=== PATIENT | male | born 1935 | race Caucasian/White ===

== ENCOUNTER 2017-05-29 12:28 | Emergency (ER) | payer OTHER, MEDICARE ==
[~2017-05-29] VITALS: Ht 172.7 cm; Wt 74.8 kg
[~2017-05-29 12:28] MED LIST: AUGMENTIN 500M500 MG PO; CHILDREN'S ASPI81 M1 PO; KRILL OIL500 MG PO; LOPRESSOR50 MG PO; METOPROLOL TART50 MG PO; PREDNISONE 20MG20 MG PO; TAMSULOSIN HYD0.4 MG PO; Theragran Vitamins PO; [UNRECOGNIZED DRUG - OTHER] PO
[2017-05-29] MEDS ORDERED: HYDRALAZINE HCL50 M1 PO (14:31)
[2017-05-29] MEDS ORDERED: METOPROLOL TART50 M1 PO (14:33)
--- NOTE | 2017-05-29 14:34 | ED GI/GU/ABDOMINAL COMPLAINT ---
History of Present Illness General Chief Complaint: Male Genitourinary Problems Stated Complaint: BLD IN URINE Source: patient, family, old records Exam Limitations: no limitations Vital Signs & Intake/Output Vital Signs & Intake/Output Vital Signs Date Time Temp Pulse Resp B/P B/P Pulse O2 O2 Flow FiO2 Mean Ox Delivery Rate 05/29 1628 78 18 148/82 99 Room Air 05/29 1259 97.6 72 18 167/70 97 Room Air Allergies Coded Allergies: Sulfa (Sulfonamide Antibiotics) (RASH 05/29/17) Reconcile Medications Aspirin (Children's Aspirin) 81 MG TAB.CHEW 1 TAB PO DAILY HEART HEALTH ( Reported) Atorvastatin Calcium 40 MG TABLET 1 TAB PO DAILY CHOLESTEROL (Reported) Hydralazine HCl 50 MG TABLET 1 TAB PO BID HEART (Reported) Krill Oil 500 MG CAPSULE 1 CAP PO DAILY SUPPLEMENT (Reported) Metoprolol Tartrate 50 MG TABLET 1 TAB PO DAILY HEART (Reported) Tamsulosin HCl (Flomax) 0.4 MG CAP.ER.24H 1 CAP PO DAILY bph Triage Note: PT TO ER W/ C/C URINARY RETENTION, HEMATURIA AND BURNING PAIN W/ URINATION X 4 DAYS, ALSO C/O CONSTIPATION X 4 DAYS. HX OF ENLARGED PROSTATE. Triage Nurses Notes Reviewed? yes Onset: 3-4 days Duration: day(s):, continues in ED Timing: recent history Quality/Severity: aching, moderate Location: suprapubic Radiation: no radiation Activities at Onset: rest Prior Abdominal Problems: similar symptoms Past Sexual History: Unobtainable at this time Modifying Factors: Worsens With: palpation, urinating. Associated Symptoms: abdominal pain, dysuria, urinary frequency HPI: 3-4 days prior to admission patient complains of decreasing urine stream with passage of bloody urine with associated dysuria. He also complains of increasing suprapubic fullness with constipation. He denies fever chills nausea vomiting diarrhea chest pain cough shortness breath headache rash bleeding. Past History Travel History Traveled to [place] past 21 day No Medical History Any Pertinent Medical History? see below for history Cardiovascular: hypertension, hyperlipidemia Renal: nephrolithiasis Other Medical Hx: BPH History of MRSA: No History of VRE: No History of CDIFF: No Pneumonia Vaccine: 03/02/07 Influenza Vaccine: 12/28/13 Surgical History Surgical History: non-contributory Psychosocial History Who do you live with Family Services at Home None What is your primary language Arabic Tobacco Use: Quit >30 days ago Family History Family History, If Any: No Known Family History. Hx Contributory? No Review of Systems Review of Systems Constitutional: Reports: no symptoms. EENTM: Reports: no symptoms. Respiratory: Reports: no symptoms. Cardiovascular: Reports: no symptoms. GI: Reports: see HPI, constipation. Genitourinary: Reports: see HPI, dysuria, hematuria, pain. Musculoskeletal: Reports: no symptoms. Skin: Reports: no symptoms. Neurological/Psychological: Reports: no symptoms. Hematologic/Endocrine: Reports: no symptoms. Immunologic/Allergic: Reports: no symptoms. All Other Systems: Reviewed and Negative Physical Exam Physical Exam General Appearance: well developed/nourished, alert, awake, anxious, moderate distress, obese Head: atraumatic, normal appearance Eyes: Bilateral: normal appearance, PERRL, EOMI, normal inspection. Ears, Nose, Throat, Mouth: hearing grossly normal, moist mucous membrane Neck: normal inspection, supple, full range of motion, normal alignment Respiratory: normal breath sounds, chest non-tender, no respiratory distress, quiet respiration, lungs clear Cardiovascular: regular rate/rhythm, normal peripheral pulses, norml femoral pulses equa Peripheral Pulses: 4+ carotid (R), 4+ carotid (L) Gastrointestinal: normal bowel sounds, soft, no organomegaly, distention, tenderness (suprapubic) Male Genitals: normal genitalia Back: normal inspection, normal range of motion, no vertebral tenderness Extremities: normal range of motion, no ligament instability Neurologic/Psych: no motor/sensory deficits, awake, alert, oriented x 3, normal gait, normal mood/affect, tobacco sample puller II-XII nml as tested Skin: intact, normal color, warm/dry Core Measures ACS in differential dx? No Sepsis Present: No Sepsis Focused Exam Completed? No Progress Differential Diagnosis: ureterolithiasis, urinary retention, UTI/pyelo Plan of Care: Orders Procedure Date/time Status Pang, Insertion/Removal/Asses 05/29 142 Active Continuous Bladder Irrigation 05/29 1421 Active CULTURE,URINE 05/29 1421 Active COMPREHENSIVE METABOLIC PANEL 05/29 1421 Complete CBC WITHOUT DIFFERENTIAL 05/29 1421 Complete CULTURE,URINE 05/29 1249 Active URINALYSIS 05/29 1249 Complete Current Medications Sig/Giulia Start time Last Medication Dose Stop Time Status Admin Ciprofloxacin 500 MG ONCE ONE 05/29 171 CAN (Cipro) 05/29 1716 Laboratory Tests 05/29/17 1626: Anion Gap 15, Estimated GFR 17 L, BUN/Creatinine Ratio 17.7, Glucose 134 H, Calcium 8.8, Total Bilirubin 0.9, AST 24, ALT 19 L, Alkaline Phosphatase 62, Total Protein 6.6, Albumin 3.4 L, Globulin 3.2, Albumin/Globulin Ratio 1.1, CBC w Diff NO MAN DIFF REQ, RBC 3.50 L, MCV 91.3, MCH 30.3, MCHC 33.2, RDW 14.4, MPV 9.3, Gran % 87.0 H, Lymphocytes % 6.7 L, Monocytes % 5.9, Eosinophils % 0.1, Basophils % 0.3, Absolute Granulocytes 11.4 H, Absolute Lymphocytes 0.9 L , Absolute Monocytes 0.8 H, Absolute Eosinophils 0, Absolute Basophils 0 05/29/17 1407: Urinalysis LIGHT H, Urine Color BLDY H, Urine Clarity CLDY H, Urine pH 8.0, Ur Specific [place] 1.015, Urine Protein >=300 H, Urine Ketones NEG, Urine Nitrite POS H, Urine Bilirubin NEG@ICTO, Urine Urobilinogen 1.0, Ur Leukocyte Esterase LARGE H, Ur Microscopic SEDIMENT EXAMINED, Urine RBC PACKD H, Urine WBC 50-75 H, Ur Epithelial Cells RARE, Urine Bacteria MOD H, Urine Hemoglobin LARGE H, Urine Glucose NEG Microbiology 05/29 1421 URINE ROUT: Urine Culture - ORD 05/29 1407 URINE ROUT: Urine Culture - RECD Diagnostic Imaging: Viewed by Me: CT Scan. Discussed w/RAD: CT Scan. Radiology Impression: Right grade 4 in left grade 5 bilateral hydroureteronephrosis without obstructing ureteral calculi. Nonobstructive left upper pole renal calculus. Stable cardiomegaly. Hiatal hernia. Diverticulosis without evidence of diverticulitis. Small amount of free fluid within the right paracolic gutter. Initial ED EKG: none Departure Departure Time of Disposition: 1707 Disposition: HOME OR SELF CARE Condition: Stable Clinical Impression Primary Impression: Urinary retention Secondary Impressions: Hydronephrosis, Urinary tract infection Referrals: Herminia SALMON,Nigel Galindo (PCP/Family) Departure Forms: Customer Survey General Discharge Information Prescriptions: Current Visit Scripts Tamsulosin HCl (Flomax) 1 CAP PO DAILY #30 CAP
[2017-05-29] MEDS ORDERED: ATORVASTATIN CA40 M1 PO (14:35)
[2017-05-29 16:36] LABS: ABSOLUTE BASOPHIL COUNT 0 /CUMM (0.0-0.2); ABSOLUTE EOSINOPHIL COUNT 0 /CUMM (0.0-0.7); ABSOLUTE GRANULOCYTE CT 11.4 /CUMM (1.4-6.5); ABSOLUTE LYMPH COUNT 0.9 /CUMM (1.2-3.4); ABSOLUTE MONOCYTE COUNT 0.8 /CUMM (0.10-0.60); BASOPHIL % 0.3 % (0.0-2.0); EOSINOPHIL % 0.1 % (0-5); HEMATOCRIT 31.9 % (42-52); MEAN CORPUSCULAR HGB 30.3 PG (27.0-31.0); MEAN CORPUSCULAR HGB CONC 33.2 G/DL (33.0-37.0); MEAN CORPUSCULAR VOLUME 91.3 FL (80.0-94.0); MEAN PLATELET VOLUME 9.3 FL (7.4-10.4); PLATELET COUNT 214 /CUMM (130-400); RBC DISTRIBUTION WIDTH 14.4 % (11.5-14.5); WHITE BLOOD CELL COUNT 13.1 /CUMM (4.8-10.8)
[2017-05-29] MEDS ORDERED: CIPRO500 M1 PO (17:06)
[2017-05-29] MEDS ORDERED: FLOMAX0.4 M1 PO (17:06)
--- NOTE | 2017-05-29 17:51 | CT SCAN REPORT ---
EXAMINATION: CT ABDOMEN AND PELVIS WITHOUT CONTRAST CLINICAL INFORMATION: Urinary retention. Azotemia. COMPARISON: 03/23/2014. TECHNIQUE: Contiguous axial thin section helical images of the abdomen and pelvis were performed without oral or IV contrast. The data set was reformatted in the coronal and sagittal planes and reviewed on an independent workstation. DLP: 289 mGy-cm. FINDINGS: The visualized lung bases are clear. The heart is enlarged, though stable. There is no pericardial effusion. There is a small hiatal hernia. The liver is of normal size and attenuation without focal lesions nor intrahepatic biliary ductal dilation. A normal gallbladder is identified. There is no wall thickening or discernible pericholecystic fluid. The spleen, pancreas, adrenal glands are unremarkable. Both kidneys are of normal size and attenuation. Within the upper pole of the left kidney, there is a nonobstructive 7 mm calculus. There is right grade 4 and left grade 5 hydroureteronephrosis without obstructing ureteral calculi. The distal ureters taper just proximal to the UVJ bilaterally. There is mild perinephric stranding bilaterally. There is a small amount of free fluid within the right paracolic gutter.. There is neither mesenteric nor retroperitoneal lymphadenopathy. There is sigmoid diverticulosis without evidence of diverticulitis; otherwise, unremarkable unopacified loops of small and large bowel are identified. There is no pelvic free fluid. A Pang catheter is present within the urinary bladder which is decompressed. There is neither pelvic nor inguinal lymphadenopathy. There is a left fat-containing inguinal hernia. Bone windows: Neither sclerotic nor lytic bone lesions are identified. There is disc height loss at L5/S1. IMPRESSION: Right grade 4 in left grade 5 bilateral hydroureteronephrosis without obstructing ureteral calculi. Nonobstructive left upper pole renal calculus. Stable cardiomegaly. Hiatal hernia. Diverticulosis without evidence of diverticulitis. Small amount of free fluid within the right paracolic gutter.
[2017-05-29 18:35] VITALS: BP 136/88
== END 2017-05-29 19:18 ==
LOC: ERH 12:28
PROVIDERS: Emergency Medicine
DX: R33.9 Retention of urine, unspecified (principal); N13.30 Unspecified hydronephrosis; N39.0 Urinary tract infection, site not specified
CPT/HCPCS: 74176; 81001; 87086

== ENCOUNTER 2017-08-11 09:35 | Emergency (ER) | payer OTHER, MEDICARE ==
[~2017-08-11] VITALS: Ht 172.7 cm; Wt 73.9 kg
[~2017-08-11 09:35] MED LIST changes: +ATORVASTATIN CA40 M1 PO; +CIPRO500 M1 PO; +FLOMAX0.4 M1 PO; +HYDRALAZINE HCL50 M1 PO; +METOPROLOL TART50 M1 PO
[2017-08-11 09:41] VITALS: BP 126/65
--- NOTE | 2017-08-11 10:08 | ED UPPER/LOWER EXTREMITY COMPL ---
History of Present Illness General Chief Complaint: Lower Extremity Problems Stated Complaint: RT KNEE PAIN NO INJURY Source: patient, family, old records Exam Limitations: no limitations Vital Signs & Intake/Output Vital Signs & Intake/Output Vital Signs Date Time Temp Pulse Resp B/P B/P Pulse O2 O2 Flow FiO2 Mean Ox Delivery Rate 08/11 0949 97 08/11 0941 97.9 62 18 126/65 96 Room Air Room Air Allergies Coded Allergies: Sulfa (Sulfonamide Antibiotics) (RASH 06/12/17) Reconcile Medications Aspirin (Children's Aspirin) 81 MG TAB.CHEW 1 TAB PO DAILY HEART HEALTH ( Reported) Atorvastatin Calcium 40 MG TABLET 1 TAB PO DAILY CHOLESTEROL (Reported) Hydralazine HCl 50 MG TABLET 1 TAB PO BID HEART (Reported) Krill Oil 500 MG CAPSULE 1 CAP PO DAILY SUPPLEMENT (Reported) Metoprolol Tartrate 50 MG TABLET 1 TAB PO DAILY HEART (Reported) Tamsulosin HCl (Flomax) 0.4 MG CAP.ER.24H 1 CAP PO DAILY bph Triage Note: PT TO ED WITH C/O THROBBING KNEE PAIN SINCE YESTERDAY MORNING, PT DENIES FALL OR INJURY TO THE AREA. Triage Nurses Notes Reviewed? yes HPI: Patient presents with pain to his right knee. Pain started after walking approximately 4 miles. The pain is just above his knee And radiates up into his anterior thigh. The pain increases with walking. He rates the pain at 5 out of 10. There is no weakness or numbness. Patient has no other complaints. Past History Travel History Traveled to [place] past 21 day No Medical History Any Pertinent Medical History? see below for history Neurological: NONE EENT: NONE Cardiovascular: hypertension, hyperlipidemia Respiratory: NONE Gastrointestinal: NONE Hepatic: NONE Renal: nephrolithiasis Musculoskeletal: NONE Psychiatric: NONE Endocrine: NONE Blood Disorders: NONE Cancer(s): NONE MOWER OPERATOR/Reproductive: NONE Other Medical Hx: BPH History of MRSA: No History of VRE: No History of CDIFF: No Surgical History Surgical History: non-contributory Psychosocial History Who do you live with Family Services at Home None What is your primary language Romansh Tobacco Use: Quit >30 days ago ETOH Use: denies use Illicit Drug Use: denies illicit drug use Family History Family History, If Any: No Known Family History. Hx Contributory? No Review of Systems Review of Systems Constitutional: Reports: no symptoms. Respiratory: Reports: no symptoms. Cardiovascular: Reports: no symptoms. Musculoskeletal: Reports: see HPI, joint pain. Neurological/Psychological: Reports: no symptoms. Immunological: Reports: no symptoms. Physical Exam Physical Exam General Appearance: well developed/nourished, alert, awake, mild distress Eyes: Bilateral: PERRL, EOMI. Neck: normal inspection, supple, full range of motion Knee Right: normal range of motion, normal inspection, tenderness Knee Ligaments Right: STABLE Neurologic/Tendon: normal sensation, normal motor functions, normal tendon functions Progress Differential Diagnosis: TENDONITIS Plan of Care: Orders Procedure Date/time Status Durable Medical Equipment 08/11 1008 Active Departure Departure Disposition: HOME OR SELF CARE Condition: Stable Clinical Impression Primary Impression: Patellar tendonitis of right knee Referrals: Rene SALMON,Hany Hope MD,Nigel Galindo (PCP/Family) Additional Instructions: WEAR IMMOBILIZER FOR COMFORT FOLLOW UP WITH ORTHO RETURN IF SYMPTOMS WORSEN OR FOR ANY CONCERNS Departure Forms: Customer Survey General Discharge Information Procedures Splinting Location: KNEE Manual Alignment Performed: No Pre-Made Type: knee imobilizer Splint: KNEE Splint Applied By: splint applied by other Pre-Proc Neuro Vasc Exam: normal Post-Proc Neuro Vasc Exam: normal
== END 2017-08-11 10:18 ==
LOC: ERH 09:35
DX: M76.51 Patellar tendinitis, right knee (principal)